=== PATIENT | female | born 1960 | race Caucasian/White ===

== ENCOUNTER 2025-08-29 09:51 | Emergency (ER) | payer OTHER, SELFPAY ==
[2025-08-29] VITALS (8 sets, daily range): BP systolic 128–154; BP diastolic 72–108
[2025-08-29 10:56] LABS: Hematocrit 46.8 % (37.0-47.0); Hemoglobin 15.8 g/dL (12.0-16.0); Mean Corp Hgb Conc. 33.8 g/dL (33.0-37.0); Mean Corpuscular Volume 90.5 fL (81.0-99.0); Nucleated Red Blood Cells % 0 %; Platelet Count 358 10^3/uL (130-400); Red Cell Dist. Width 13.0 % (11.5-14.5)
[2025-08-29 11:10] LABS: ALT (SGPT) 42 U/L (0-35); AST (SGOT) 35 U/L (14-36); Albumin 4.9 g/dl (3.5-5.0); Alkaline Phosphatase 145 U/L (38-126); Blood Urea Nitrogen 18 mg/dl (7-17); Calcium 10.3 mg/dl (8.4-10.2); Carbon Dioxide 24 mmol/L (22-30); Chloride 105 mmol/L (98-107); Glucose 92 mg/dl (70-99); Lipase 100 U/L (23-300); Potassium 4.7 mmol/L (3.5-5.1); Sodium 140 mmol/L (135-145); Total Protein 8.1 g/dl (6.3-8.2); eGFR > 60.00
[2025-08-29 11:38] LABS: Magnesium 2.2 mg/dl (1.6-2.3)
--- NOTE | 2025-08-29 11:40 | ED.GENMED ---
History of Present Illness
General
Chief Complaint: Abdominal Pain
Source: patient
Exam Limitations: none
Time Seen by Provider: 08/29/25 10:32
Nursing documentation reviewed up to this point in time: agreed with
History of Present Illness
History of Present Illness:
Patient presents to ED secondary to persistent abdominal pain, associated with nausea, vomiting, and diarrhea over the past 3 days. Abdominal pain described as crampy, sharp, diffuse, without any alleviating or exacerbating factors. Denies fever
or chills. Denies trauma. Patient states that her symptoms started 1 day after increasing dose of tirzepatide for weight loss. Patient states that she took her initial dose of medication 1 week prior, without any side effects. Denies recent
travel or surgery. Denies recent illness. Denies sick contact. Denies recent change in diet.
Review of Systems
Review of Systems
Allergies reviewed?: Yes
All Other Systems: ROS reviewed and negative except as documented in HPI and ROS
Constitutional: Reports no symptoms
Respiratory: Reports no symptoms
Cardiac: Reports no symptoms
ABD/GI: Reports no symptoms
Musculoskeletal: Reports no symptoms
Skin: Reports no symptoms
Neurological: Reports no symptoms
Phy Exam
Physical Exam
Physical Exam:
Physical Exam
General: mild distress, not acutely ill. afebrile
Head: nc/at. eomi
Neck: supple. normal range of motion
Heart: s1/s2 regular rate and rhythm
Lungs: no acute respiratory distress. clear bilaterally
Abdomen: normal bowel sounds. mild epigastric/RUQ tenderness to palpation
Neuro: alert and oriented x 3. no focal neurological deficits
Skin: no rash
Psychiatric: well kept. interactive and cooperative
Extremities: no edema. no calf tenderness.
Course
Orders/Labs/Results
Orders:
Orders
08/29/25 10:38
Complete Blood Count/With Diff Urgent
Comprehensive Metabolic Panel Urgent
Lipase Urgent
Magnesium Urgent
Comment: ADD ON
08/29/25 11:21
Add On- LAB Urgent
Tests Added?: magnesium
08/29/25 11:22
0.9% Sodium Chloride 1000 ml [Nss] 1,000 ml IV BOLUS
Ketorolac [Toradol] 15 mg IV NOW STA
Ondansetron Injectable [Zofran] 4 mg IV NOW STA
Pantoprazole [Protonix IV] 40 mg IV NOW STA
08/29/25 13:56
0.9% Sodium Chloride 500 ml [Nss] 500 ml IV BOLUS
US Abdomen Complete/Upper Urgent
Comment:
Reason For Exam: epigastric/RUQ tenderness
Abnormal Lab Results
08/29/25
10:38
WBC 10.9 H 10^3/uL
(4.8-10.8)
Absolute Neuts (auto) 7.9 H 10^3/uL
(1.4-6.5)
Absolute Monos (auto) 0.8 H 10^3/uL
(0.1-0.6)
Lymphocytes % 18.7 L %
(20.5-51.1)
BUN 18 H mg/dl
(7-17)
Calcium 10.3 H mg/dl
(8.4-10.2)
ALT 42 H U/L
(0-35)
Alkaline Phosphatase 145 H U/L
(38-126)
08/29/25 10:38
08/29/25 10:38
Vital Signs
Initial and Last Documented VS:
Initial Vital Signs
Temp Pulse Resp BP Pulse Ox
98 F 109 16 154/108 99
08/29/25 09:54 08/29/25 09:54 08/29/25 09:54 08/29/25 09:54 08/29/25 09:54
Last Documented Vital Signs
Temp Pulse Resp BP Pulse Ox
98 F 84 14 133/72 97
08/29/25 09:54 08/29/25 15:30 08/29/25 14:00 08/29/25 15:00 08/29/25 15:30
MDM/Problems Addressed
MDM/Problems Addressed:
Patient reports significant improvement in symptoms after treatment. However, on repeat abdominal exam, there is residual mild epigastric tenderness. As such, decision made to obtain ultrasound abdomen.
Ultrasound abdomen report reviewed and discussed with patient.
Patient presenting symptoms likely secondary to dose-dependent side effect from the medication. However, caution patient to return to ED with her symptoms, i.e. fever/worsening pain/vomiting. Patient will speak with her physician regarding future
treatment options. Patient otherwise is hemodynamically stable and appears comfortable, at time of discharge, to the care of her family. Recommended bland diet with hydration for the next 24 hours, along with initiation of PPI daily.
*Pulse Oximetry
SaO2: 98
Oxygen Mode of Delivery: Room air
Patient hypoxic: no
*Critical Care Note
Total Time (30-74mins, 75-104mins- exclusive of procedures): Not Applicable
ED Attending Note
-
Portions of this chart may have been created with voice recognition software.� Occasional wrong word or��sound alike� substitutions may have occurred due to the inherent limitations of voice recognition software.
Discharge Plan
Departure
Patient Disposition: Home (Routine Discharge)
Date of Disposition: 08/29/25
Time of Disposition: 15:23
Patient with high blood pressure during this ER visit?: Yes
Condition: Fair
Discharge Problem:
Abdominal pain, vomiting, and diarrhea
Instructions: Nausea and Vomiting, Adult (DC), [place] diet, Abdominal Pain
Prescriptions:
New
ondansetron 4 mg Tablet,Disintegrating
4 mg PO TIDPRN PRN (Reason: nausea/vomiting) Qty: 12 0RF
No Action
multivitamin 1 EACH tablet
1 ea PO DAILY
cetirizine 10 MG tablet
10 mg PO DAILY
ascorbic acid (vitamin C) [Vitamin C] 500 MG tablet
1,000 mg PO DAILY
duloxetine 60 MG capsule,delayed release(DR/EC)
60 mg PO HS
melatonin 10 MG tablet
10 mg PO HS
Referrals:
Hansa Dominguez MD [Family Provider, [facility]]
Activity Restrictions/Additional Instructions:
As discussed, please follow-up with your physician for reevaluation. Please consider return to ED with worsening symptoms, i.e. fever/worsening pain/vomiting. Your prescription has been sent electronically to [facility] pharmacy in [place].
Please take [id number] PPI medication, i.e. omeprazole, Pepcid/Prilosec, along with prescribed medication.
Interventions
Interventions:
*Risk Screen - Suicide Last Done: 08/29/25 09:54
*General Assessment Last Done: 08/29/25 10:37
*Neglect/Abuse Screening Last Done: 08/29/25 09:54
*ED COVID-19 Vaccine History Last Done: 08/29/25 10:37
*ED Influenza Vaccine History Last Done: 08/29/25 10:37
*Nursing Disposition Last Done: 08/29/25 15:30
RX-Sfsrvp-Aexnunnfla Assessment Last Done: 08/29/25 10:37
Discharge Date and Time
Discharge Date/Time: 08/29/25 15:56
Print Language: OCCITAN
[2025-08-29] MEDS: NSS 1000 IV (11:48)
[2025-08-29] MEDS: PROTONIX IV 40 MG IV (11:48)
[2025-08-29] MEDS: TORADOL 15 MG IV (11:48)
[2025-08-29] MEDS: ZOFRAN 4 MG IV (11:49)
[2025-08-29] MEDS: NSS 500 IV (14:44)
== END 2025-08-29 15:56 | disposition home or self-care (01) ==
LOC: EMR 09:51
PROVIDERS: EMERGENCY PHYSICIAN Emergency Medicine; FAMILY PHYSICIAN Family Medicine
DX: R10.84 Generalized abdominal pain (principal); R11.2 Nausea with vomiting, unspecified; R19.7 Diarrhea, unspecified
CPT/HCPCS: 99284; 96374; 96375; 96361; 76700; 80053; 83690; 83735; 85025